=== PATIENT | female | born 1980 | race Caucasian/White ===

== ENCOUNTER 2024-04-02 02:01 | Emergency (ER) | payer SELFPAY ==
[~2024-04-02] VITALS: Ht 160 cm; Wt 86.2 kg
[2024-04-02 02:13] VITALS: BP 150/76; TEMP 98.1
[2024-04-02 02:30] VITALS: O2SAT 98
[2024-04-02] MEDS ORDERED: IBUPROFEN 400 MG TABLET ONE (02:52)
[2024-04-02] MEDS: IBUPROFEN 400 MG TABLET PO ONE (02:55)
[2024-04-02] MEDS ORDERED: IBUP-1957 PO (02:57)
== END 2024-04-02 03:07 | disposition home or self-care (01) ==
LOC: ER 02:05
DX: S64.01XA Injury of ulnar nerve at wrist and hand level of right arm, initial encounter (principal); X58.XXXA Exposure to other specified factors, initial encounter; Y93.89 Activity, other specified; Y92.89 Other specified places as the place of occurrence of the external cause; Y99.8 Other external cause status